=== PATIENT | male | born 1955 ===

== ENCOUNTER 2022-07-28 19:46 | Emergency (ER) | payer MEDICARE, OTHER ==
[~2022-07-28] VITALS: Ht 165.1 cm; Wt 81.7 kg
[~2022-07-28 19:46] MED LIST: DOCU100 PO; HYDACE5 PO; HYDACE5325 PO; LORA2 PO; ONDA8 PO; OXYACE5T PO; OXYC1TAB11 PO; PRED20 PO; PROACE100; RXLORA1 PO; RXOXYACE PO
== END 2022-07-28 22:42 | disposition home or self-care (01) ==
LOC: ER 19:46
DX: M25.511 Pain in right shoulder (principal); Z88.5 Allergy status to narcotic agent; Z88.8 Allergy status to other drugs, medicaments and biological substances; W00.0XXA Fall on same level due to ice and snow, initial encounter
CPT/HCPCS: 73030; 73080; 96374; 96375; 99283-25; A9270; J1170; J2405; J7030